=== PATIENT | male | born 1995 | race Caucasian/White ===

== ENCOUNTER 2022-11-11 17:23 | Emergency (ER) | payer OTHER | END 2022-11-11 18:30 | disposition home or self-care (01) | LOC: JP.ED 17:23 | DX: S06.0X0A Concussion without loss of consciousness, initial encounter (principal); W00.0XXA Fall on same level due to ice and snow, initial encounter; Y93.01 Activity, walking, marching and hiking | CPT/HCPCS: 99282; 99283 ==